=== PATIENT | male | born 1940 | race Caucasian/White ===

== ENCOUNTER → 2016-10-13 | Outpatient (CLI) | payer OTHER ==
[~2016-10-13] MED LIST: ACTOS 45 MG45 M1 PO; AMLODIPINE BESY10 MG PO; CHLORTHALIDONE25 MG PO; COLACE 100 MG100 MG PO; GLIPIZIDE ER5 MG PO; LANTUSSOLASTAR; LEVOXYL100 MCG PO; LIPITOR20 MG PO; LISINOPRIL40 MG PO; NORCO 5-325 TA1 EACH PO; PERCOCET 5-3251 EACH PO; SENNA PO; STARLIX PO; TOPROL XL50 MG PO
== END ==
LOC: RAD 14:33
DX: R05 Cough (principal)

== ENCOUNTER 2017-11-30 06:35 | Inpatient (IN) | payer OTHER ==
[~2017-11-30] VITALS: Ht 190.5 cm; Wt 110.2 kg
--- NOTE | ~2017-11-30 | EKG ---
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: Yesenia AZAR : 1940 Requested By: Rakesh Betts Order Number: [id number] MD: Nir Ascencio Measurements Intervals [place] Rate: 64 P: 10 WA: 176 QRS: 3 QRSD: 105 T: 25 QT: 391 QTc: 404 Interpretive Statements Sinus rhythm Abnrm T, probable ischemia, anterolateral lds Compared to ECG 12/01/2017 06:06:21 Atrial premature complex(es) no longer present Electronically Signed On 12-05-2017 13:19:02 CDT by Nir Ascencio [email or web address] <ELECTRONICALLY SIGNED> By: Nir Ascencio MD, FAC 12/05/17 1319 1002 1002 Nir Ascencio MD, [facility] /EPI
--- NOTE | ~2017-11-30 | CATHLAB ---
[facility] [address] [place] [address] INVASIVE PROCEDURE REPORT Name: BRETT RIVERA Room #: 215-[facility] ..#: [id number] Admission: 12/01/17 Attend Phys: Rakesh Betts, Discharge: 12/03/17 Date of : 42 Date of Service: 12/03/17 1718 Report #: [id number] THIS REPORT FOR: //name// APPROVED REPORT Study performed: 12/02/2017 07:12:41 Patient Details Patient Status: In-Patient Room #: The patient is a 77 year-old male Event Personnel Rakesh Betts Service Observer, Riki Wick RN, Gris Torres Sandifer, David Monitor Procedures Performed CHRISTIANNE Place w/wo Plasty Single LAD 337673 Indication Chest pain Procedure Narrative The Right Groin^ was infiltrated with 1% Lidocaine subcutaneous anesthesia. A PINNACLE 6FR Sheath #[id number] sheath was inserted into the RFA^. Coronary angiography was performed using coronary diagnostic catheters. Closure device was deployed with a 6 Fr MYNXGRIP 6/7F #[id number]. The patient tolerated the procedure well and there were no complications associated with the procedure. Intraoperative Conscious Sedation Sedation start time: 7.55 Case end Time: 8.12 Fentanyl 25 mcg Versed 1.5 mg Fluoro Time: 5.41 minutes Dose: 607 mGy Contrast Type and Amount: Visipaque 25 ml Hemodynamics The aortic pressure is 156/68 mmHg with a mean of 109 mmHg. PCI Technique Lesion Percutaneous coronary intervention was performed on the mid left anterior descending artery segment. A LAUNCHER 6FR EBU 4 #[id number] Guide Catheter was used to engage the ostium. A [facility] Interventional [facility] [address] [place] [address] INVASIVE PROCEDURE REPORT Name: BRETT RIVERA Room #: 215-[facility] .R.#: [id number] Admission: 12/01/17 Attend Phys: Rakesh Betts, Discharge: 12/03/17 Date of : 42 Date of Service: 12/03/17 1718 Report #: [id number] Guidewire was used to cross the lesion. BALLOON DILATION A Balloon catheter Sprinter OTW 2.5 x 12 #[id number] was inserted and inflated up to 8.00atm for 10seconds. Additional Inflation: 8.00atm for 15seconds. Additional Inflation: 10.00atm for 16seconds. STENT DEPLOYMENT A drug-eluting stent RESOLUTE OTW 3.0 X 12 #[id number] was inserted and inflated up to 14.00atm for 34seconds. Additional Inflation: 14.00atm for 26seconds. Conclusion #1 successful PTCA stent of the proximal LAD lesion of 90% to 0% with a 30 by 12 resolute drug-eluting stent postdilated 3.3 mm 0% residual and LISA grade 3 flow #2 diagonal branch was jailed but remains widely patent has a right ankle take off. Recommendations and plan limited contrast utilized less than 25 mL. Minx closure device was utilized without complication. Transfer to CCU stable condition. Dual antiplatelet therapy to continue 6-12 months. <ELECTRONICALLY SIGNED> By: Rakesh Betts MD, [facility] 12/03/171717 17 17 Rakesh Betts MD, FAC /INF
--- NOTE | ~2017-11-30 | EKG ---
[address] [place] [address] ELECTROCARDIOGRAM REPORT Name: BRETT RIVERA Room #: 215-[facility] IN M.R.#: [id number] Admission: 12/01/17 Attend Phys: Rakesh Betts MD, Discharge: 12/03/17 Date of : 42 Report #: [id number] THIS REPORT FOR: //name// [facility] Test Date: 2017-12-03 Test Time: 06:09:26 Pat Name: BRETT RIVERA Department: Room: 215 Gender: M Meal Room Hand: : 1940 Requested By: Rakesh Betts Order Number: [id number] MD: Nir Ascencio Measurements Intervals [place] Rate: 59 P: -1 VT: 167 QRS: 17 QRSD: 112 T: -47 QT: 467 QTc: 463 Interpretive Statements Sinus rhythm Abnormal T, consider ischemia, anterior leads Baseline wander in lead(s) V1 Compared to ECG 12/01/2017 06:06:21 No significant change was found Electronically Signed On 12-05-2017 13:33:17 CDT by Nir Ascencio [email or web address] <ELECTRONICALLY SIGNED> By: Nir Ascencio MD, [facility] 12/05/17 1333 0609 0609 Nir Ascencio MD, [facility] /EPI
--- NOTE | ~2017-11-30 | H ---
[facility] [place] [address] HISTORY AND PHYSICAL Name: BRETT RIVERA Room #: 215-P [facility] M.R.#: [id number] Admission: 11/30/17 Attend Phys: Rakesh Betts MD, Discharge: Date of : 42 Report #: [id number] THIS REPORT FOR: //name// CC: DR MAEVE Arnold DATE OF SERVICE: 11/30/2017 HISTORY OF PRESENT ILLNESS: The patient is a 77-year-old male who I was attempting to place an LAD stent this morning. The patient was admitted for this. He has a history of chronic kidney disease, and the diagnostic procedure had been done back in September of this year. 80-90% proximal LAD and diagonal takeoff, with stable anginal symptoms. Subsequently, on her stat labs this morning, despite holding lisinopril, his laboratory work had a creatinine of 2.7, potassium of 6.7. His baseline creatinine is in the low 3s. We had held the ZIA inhibitors. His H and H were 11.8 and 35. In any event, with the hyperkalemia and the creatinine up, certainly need to hold off on any intervention or contrast utilization at this time. He is stable and pain free. I have asked Nephrology to see him. We have treated the hyperkalemia with D50 insulin and high dose albuterol. CURRENT MEDICATIONS: Have been atorvastatin 20, amlodipine 10. We have held lisinopril for 3 days, insulin, glipizide, metoprolol 25, Livalo 4 mg and Demadex 20, which had also been held. PAST MEDICAL HISTORY: Positive for coronary artery disease as described above, diabetes, hypertension, hypercholesterolemia, hypothyroidism, chronic kidney disease, history of renal cell cancer with a single kidney. Left elbow surgery and cholecystectomy. SOCIAL HISTORY: He is . He is not a smoker. No alcohol use. He is retired. He lives independently. 2 Diet Cokes a day. No regular exercise. ALLERGIES: IODINE ALLERGY GIVES HIM HIVES. REVIEW OF SYSTEMS: Essentially negative except for some hesitancy and frequency, nocturia. As stated above. PHYSICAL EXAMINATION: GENERAL: He is pleasant, alert. VITAL SIGNS: Blood pressure 144/84, pulse 70s. HEENT: Eyes reveal xanthelasmas. Pharynx is clear. NECK: Shows preserved upstrokes without JVD or bruits. [facility] [address] [place] [address] HISTORY AND PHYSICAL Name: BRETT RIVERA Room #: [address] [place] [address]#: [id number] Admission: 11/30/17 Attend Phys: Rakesh Betts MD, Discharge: Date of : 42 Report #: [id number] LUNGS: Slight prolonged phase, but clear. HEART: Regular rate and rhythm, S1, S2. ABDOMEN: Soft. No HSM or abdominal bruit. EXTREMITIES: Reveal trace of nonpitting edema. NEUROLOGIC: Nonfocal. SKIN: Warm and dry without xanthoma or ulcer. MUSCULOSKELETAL: No gross joint deformity. ASSESSMENT: 1. Hyperkalemia. Potassium 6.7. 2. Acute on chronic kidney insufficiency. 3. Coronary artery disease with high grade proximal mid LAD lesion. Scheduled for LAD stent. 4. Hypertension. 5. Hypercholesterolemia. 6. Degenerative joint disease. 7. Diabetes. RECOMMENDATIONS AND PLAN: I have treated this hyperkalemia. Nephrology has weighed in and will follow. We will repeat labs in the morning. We will admit to the CCU, monitor rhythm. Repeat potassium and will attempt an LAD stent at a later date, I suspect 24-48 hours once creatinine and potassium have improved, and Nephrology is also okay in this. I have discussed this whole issue here with the patient and his , and they are in agreement with the plan. He will be admitted to CCU and monitored. <ELECTRONICALLY SIGNED> By: Rakesh Betts MD, FACC 11/30/17 1231 0936 1031 Rakesh Betts MD, FACC /nt
--- NOTE | ~2017-11-30 | HC ---
[facility] [place] [place] [address] CONSULTATION Name: BRETT RIVERA Room #: 215-P [facility] IN M.R.#: [id number] Admission: 12/01/17 Attend Phys: Rakesh Betts MD, Discharge: 12/03/17 Date of : 42 Report #: [id number] THIS REPORT FOR: //name// CC: Rakesh Nelson REASON FOR CONSULTATION: Chronic kidney disease. REASON FOR PRESENTATION: Coronary artery disease for catheterization and LAD stent. HISTORY OF PRESENT ILLNESS: A 77-year-old with past medical history of chronic kidney disease, who sees Dr. Nelson in my clinic. He recently had a cardiac catheterization that revealed an LAD lesion and was brought for further intervention. He was found to have an elevated potassium and the procedure was canceled. I am being asked to manage his chronic kidney disease and hyperkalemia. The patient tells me that he had renal cell carcinoma status post nephrectomy about 11 years ago. He recently saw Dr. Nelson in the clinic. He does tend to run a creatinine of around 2.1. He also is known to have issues with hyperkalemia and there was a discussion of discontinuation of the angiotensin-converting enzyme inhibitors down the road. On presentation yesterday, his creatinine and potassium were elevated above baseline and I am asked, as I stated, to manage accordingly. PAST MEDICAL HISTORY: 1. Coronary artery disease. 2. Hypertension. 3. Hyperlipidemia. 4. Hypothyroidism. 5. Chronic kidney disease. 6. Status post nephrectomy. 7. Left elbow surgery. 8. Cholecystectomy. ALLERGIES: IODINE. SOCIAL HISTORY: , not a smoker. Lives with his . No drug or alcohol abuse. OUTPATIENT MEDICATIONS: Reviewed. 1. Metoprolol. 2. Amlodipine. 3. Lisinopril. 4. Torsemide. 5. Glipizide. 6. Levothyroxine. [facility] [address] [place] [address] CONSULTATION Name: BRETT RIVERA Room #: 215[facility] [id number] Admission: 12/01/17 Attend Phys: Rakesh Betts MD, Discharge: 12/03/17 Date of : 42 Report #: [id number] 7. Livalo. REVIEW OF SYSTEMS: GENERAL: No fever. No chills. CARDIOVASCULAR: No chest pain, but occasional dyspnea on exertion. PULMONARY: No cough or hemoptysis. GASTROINTESTINAL: No nausea or vomiting. GENITOURINARY: No frequency, no urgency. PHYSICAL EXAMINATION: VITAL SIGNS: Blood pressure 145/84. Temperature 36.7, pulse rate 63. HEAD AND NECK: No jugular venous distention, no bruit, no thyromegaly. CHEST: Clear to auscultation bilaterally. CARDIOVASCULAR: Regular with no rub detected. ABDOMEN: Soft, nontender with no hepatosplenomegaly. LOWER EXTREMITIES: No edema with intact peripheral pulses. LABORATORY DATA: Laboratory values reviewed. Potassium is down to 4.7, 6.5 yesterday. BUN is 58, creatinine is 2.6. ASSESSMENT, IMPRESSION AND PLAN: 1. Acute kidney injury. 2. Chronic kidney disease. 3. Status post nephrectomy. 4. Hyperkalemia. 5. Coronary artery disease. 6. Hypertension. 7. As for now, his hyperkalemia has corrected. Lisinopril has been held. He received a dose of Kayexalate and this has rectified his potassium issues. Blood pressure seems to be acceptable. I would continue to hold his diuretics for now. Discussed with Dr. Betts regarding the future plans for his heart catheterization. We will continue to follow along. <ELECTRONICALLY SIGNED> By: Zain Pineda MD 12/04/1723 0831 09 Zain Pineda MD /nt
--- NOTE | ~2017-11-30 | EKG ---
[address] [address] ELECTROCARDIOGRAM REPORT Name: BRETT RIVERA Room #: 215-P [facility] M.R.#: [id number] Admission: 11/30/17 Attend Phys: Rakesh Betts MD, Discharge: Date of : 42 Report #: [id number] THIS REPORT FOR: //name// [facility] Test Date: 2017-11-30 Test Time: 06:58:06 Pat Name: BRETT RIVERA Department: Room: 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: Yesenia AZAR : 1940 Requested By: Rakesh Betts Order Number: [id number] MD: Nir Ascencio Measurements Intervals [place] Rate: 75 P: CT: QRS: 1 QRSD: 98 T: 54 QT: 397 QTc: 444 Interpretive Statements Sinus rhythm Abnrm T, probable ischemia, anterolateral lds Compared to ECG 10/21/2010 16:51:[address] and T wave abnormality is now present Electronically Signed On 11-30-2017 16:58:13 CDT by Nir Ascencio [email or web address] <ELECTRONICALLY SIGNED> By: Nir Ascencio MD, FACC 11/30/17 1658 0658 0658 Nir Ascencio MD, [facility] /EPI
--- NOTE | ~2017-11-30 | EKG ---
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: : 1940 Requested By: Zita Richmond Order Number: [id number] MD: Nir Ascencio Measurements Intervals [place] Rate: 66 P: -10 VT: 171 QRS: 19 QRSD: 112 T: -46 QT: 440 QTc: 461 Interpretive Statements Sinus rhythm Atrial premature complex Abnormal T, consider ischemia, anterior leads Compared to ECG 11/30/2017 06:58:06 Atrial premature complex(es) now present Electronically Signed On 12-01-2017 8:14:51 CDT by Nir Ascencio [email or web address] <ELECTRONICALLY SIGNED> By: Nir Ascencio MD, [facility] 12/01/17 0814 0606 0606 Nir Ascencio MD, [facility] /EPI
[2017-11-30] MEDS ORDERED: CHILDREN'S ASPI81 M1 PO (06:56)
[2017-11-30] MEDS ORDERED: CHLORDIAZEPOXID25 M1 PO (06:59)
[2017-11-30] MEDS ORDERED: LIVALO4 MG PO (06:59)
[2017-11-30] MEDS ORDERED: TOUJEO SOL300 UNIT/1 SUBQ (07:02)
[2017-11-30] MEDS ORDERED: DEMADEX20 MG PO (07:05)
[2017-11-30 07:09] VITALS: BP 149/84
[2017-11-30 07:22] LABS: HEMOGLOBIN 11.8 gm/dL (14.0-18.0)
[2017-11-30 07:23] LABS: MCH 29.7 pg (26.0-34.0); MCHC 33.6 g/dL (28.0-37.0); MCV 88.2 fL (80.0-100.0); RBC 3.97 mil/uL (4.50-6.00); WBC 6.2 thou/uL (4.0-11.0)
[2017-11-30 07:30] LABS: CALCIUM 8.8 mg/dL (8.5-10.1); CREATININE 2.7 mg/dL (0.7-1.3)
[2017-11-30 07:33] LABS: POTASSIUM 6.7 mmol/L (3.5-5.1)
[2017-11-30] MEDS ORDERED: NORVASC10 MG PO (10:36)
[2017-11-30 16:29] VITALS: BP 153/77
[2017-11-30 19:30] VITALS: BP 146/79
[2017-11-30 23:19] VITALS: BP 146/78
[2017-12-01 03:47] VITALS: BP 135/85
[2017-12-01 04:16] LABS: ALBUMIN 3.1 g/dL (3.4-5.0); CALCIUM 8.6 mg/dL (8.5-10.1); CREATININE 2.6 mg/dL (0.7-1.3); PHOSPHORUS 3.7 mg/dL (2.5-4.9)
[2017-12-01 04:17] LABS: POTASSIUM 4.7 mmol/L (3.5-5.1)
[2017-12-01 07:19] VITALS: BP 145/84
[2017-12-01 11:09] VITALS: BP 143/78
[2017-12-01 19:55] VITALS: BP 140/77
[2017-12-02] VITALS (17 sets, daily range): BP systolic 125–161; BP diastolic 68–85
[2017-12-02 04:04] LABS: ALBUMIN 3.2 g/dL (3.4-5.0); CALCIUM 8.3 mg/dL (8.5-10.1); CREATININE 2.4 mg/dL (0.7-1.3); PHOSPHORUS 2.7 mg/dL (2.5-4.9); POTASSIUM 5.7 mmol/L (3.5-5.1)
[2017-12-03 04:26] LABS: CALCIUM 8.3 mg/dL (8.5-10.1); CREATININE 2.5 mg/dL (0.7-1.3); PHOSPHORUS 3.2 mg/dL (2.5-4.9); POTASSIUM 4.5 mmol/L (3.5-5.1)
[2017-12-03 05:16] VITALS: BP 151/84
[2017-12-03 05:25] LABS: HEMATOCRIT 32.3 % (42.0-52.0); HEMOGLOBIN 10.9 gm/dL (14.0-18.0); MCH 29.9 pg (26.0-34.0); MCHC 33.9 g/dL (28.0-37.0); MCV 88.1 fL (80.0-100.0); RBC 3.66 mil/uL (4.50-6.00); RDW 13.7 % (10.5-14.5); WBC 14.8 thou/uL (4.0-11.0)
[2017-12-03 07:40] VITALS: BP 145/86
[2017-12-03] MEDS ORDERED: ASPIRIN325 PO (09:10)
[2017-12-03] MEDS ORDERED: SODIUM BICARBO650 M3 PO (09:11)
[2017-12-03] MEDS ORDERED: PLAVIX 75 MG TA75 M1 PO (09:13)
[2017-12-03 09:22] VITALS: BP 145/86
== END 2017-12-03 10:15 | disposition home or self-care (01) | DRG 246 ==
LOC: CATH 06:35 → 2N 06:49 → CATH 11:10 → 2N 12-01 11:56 → ENTRNSPT 12-03 09:50 → EDTRNSPTSTS 12-03 09:54 → 2N 12-03 10:15
PROVIDERS: Hospitalist; Internal Medicine Cardiovascular Disease
PROC: B211YZZ Fluoroscopy of Multiple Coronary Arteries using Other Contrast (ICD-10-PCS; principal; 2017-12-03)
PROC: 027034Z Dilation of Coronary Artery, One Artery with Drug-eluting Intraluminal Device, Percutaneous Approach (ICD-10-PCS; principal; 2017-12-03)
DX: I25.10 Atherosclerotic heart disease of native coronary artery without angina pectoris (principal); N17.0 Acute kidney failure with tubular necrosis; E87.5 Hyperkalemia; E78.00 Pure hypercholesterolemia, unspecified; M19.90 Unspecified osteoarthritis, unspecified site; E11.22 Type 2 diabetes mellitus with diabetic chronic kidney disease; G47.33 Obstructive sleep apnea (adult) (pediatric); N18.9 Chronic kidney disease, unspecified; E78.5 Hyperlipidemia, unspecified; I12.9 Hypertensive chronic kidney disease with stage 1 through stage 4 chronic kidney disease, or unspecified chronic kidney disease; E03.9 Hypothyroidism, unspecified; Z90.5 Acquired absence of kidney; Z90.49 Acquired absence of other specified parts of digestive tract; Z91.041 Radiographic dye allergy status; Z85.528 Personal history of other malignant neoplasm of kidney; Z79.899 Other long term (current) drug therapy
CPT/HCPCS: 10081

== ENCOUNTER → 2020-03-28 | Outpatient (CLI) | payer OTHER ==
[~2020-03-28] MED LIST changes: +ASPIRIN325 PO; +CHILDREN'S ASPI81 M1 PO; +CHLORDIAZEPOXID25 M1 PO; +DEMADEX20 MG PO; +LIVALO4 MG PO; +NORVASC10 MG PO; +PLAVIX 75 MG TA75 M1 PO; +SODIUM BICARBO650 M3 PO; +TOUJEO SOL300 UNIT/1 SUBQ
== END ==
LOC: SJCVC 15:17
PROVIDERS: ATTEND Internal Medicine Cardiovascular Disease
DX: I48.91 Unspecified atrial fibrillation (principal); R94.31 Abnormal electrocardiogram [ECG] [EKG]; I25.10 Atherosclerotic heart disease of native coronary artery without angina pectoris; E78.00 Pure hypercholesterolemia, unspecified; C85.90 Non-Hodgkin lymphoma, unspecified, unspecified site; D64.9 Anemia, unspecified; I12.9 Hypertensive chronic kidney disease with stage 1 through stage 4 chronic kidney disease, or unspecified chronic kidney disease; E11.22 Type 2 diabetes mellitus with diabetic chronic kidney disease; N18.4 Chronic kidney disease, stage 4 (severe); G54.1 Lumbosacral plexus disorders; E03.9 Hypothyroidism, unspecified; Z79.4 Long term (current) use of insulin; Z82.49 Family history of ischemic heart disease and other diseases of the circulatory system; Z79.82 Long term (current) use of aspirin; Z79.899 Other long term (current) drug therapy

== ENCOUNTER → 2020-07-04 | Outpatient (CLI) | payer OTHER | LOC: SJCVCIMAG 08:46 | PROVIDERS: ATTEND Internal Medicine Cardiovascular Disease | DX: I08.3 Combined rheumatic disorders of mitral, aortic and tricuspid valves (principal); R94.31 Abnormal electrocardiogram [ECG] [EKG]; I44.7 Left bundle-branch block, unspecified; I44.0 Atrioventricular block, first degree; I48.0 Paroxysmal atrial fibrillation; E11.22 Type 2 diabetes mellitus with diabetic chronic kidney disease; I13.10 Hypertensive heart and chronic kidney disease without heart failure, with stage 1 through stage 4 chronic kidney disease, or unspecified chronic kidney disease; N18.30 Chronic kidney disease, stage 3 unspecified; I25.10 Atherosclerotic heart disease of native coronary artery without angina pectoris; E78.00 Pure hypercholesterolemia, unspecified; D64.9 Anemia, unspecified; C85.90 Non-Hodgkin lymphoma, unspecified, unspecified site; Z79.899 Other long term (current) drug therapy ==

== ENCOUNTER → 2021-01-16 | Outpatient (CLI) | payer OTHER | LOC: SJCVC 13:33 → SJCVCIMAG 13:33 | PROVIDERS: ATTEND Internal Medicine Cardiovascular Disease | DX: R94.31 Abnormal electrocardiogram [ECG] [EKG] (principal); N28.89 Other specified disorders of kidney and ureter; I25.10 Atherosclerotic heart disease of native coronary artery without angina pectoris; E78.00 Pure hypercholesterolemia, unspecified; E11.22 Type 2 diabetes mellitus with diabetic chronic kidney disease; I12.9 Hypertensive chronic kidney disease with stage 1 through stage 4 chronic kidney disease, or unspecified chronic kidney disease; N18.30 Chronic kidney disease, stage 3 unspecified; R60.9 Edema, unspecified; K85.30 Drug induced acute pancreatitis without necrosis or infection; D64.9 Anemia, unspecified; R19.5 Other fecal abnormalities; E03.9 Hypothyroidism, unspecified; Z90.5 Acquired absence of kidney; Z90.49 Acquired absence of other specified parts of digestive tract; Z98.890 Other specified postprocedural states; Z88.8 Allergy status to other drugs, medicaments and biological substances; Z79.82 Long term (current) use of aspirin; Z79.4 Long term (current) use of insulin; Z79.899 Other long term (current) drug therapy; Z82.49 Family history of ischemic heart disease and other diseases of the circulatory system ==

== ENCOUNTER → 2021-07-11 | Outpatient (CLI) | payer OTHER | LOC: SJCVCIMAG 08:08 | PROVIDERS: ATTEND Internal Medicine Cardiovascular Disease | DX: N28.1 Cyst of kidney, acquired (principal); N28.9 Disorder of kidney and ureter, unspecified ==

== ENCOUNTER → 2021-07-24 | Outpatient (CLI) | payer OTHER | LOC: SJCVC 13:38 | PROVIDERS: ATTEND Internal Medicine Cardiovascular Disease | DX: I48.91 Unspecified atrial fibrillation (principal); I25.10 Atherosclerotic heart disease of native coronary artery without angina pectoris; E11.22 Type 2 diabetes mellitus with diabetic chronic kidney disease; I12.9 Hypertensive chronic kidney disease with stage 1 through stage 4 chronic kidney disease, or unspecified chronic kidney disease; N18.30 Chronic kidney disease, stage 3 unspecified; D64.9 Anemia, unspecified; E78.00 Pure hypercholesterolemia, unspecified; C85.90 Non-Hodgkin lymphoma, unspecified, unspecified site; N28.89 Other specified disorders of kidney and ureter; Z79.4 Long term (current) use of insulin; Z90.49 Acquired absence of other specified parts of digestive tract; Z95.2 Presence of prosthetic heart valve; Z98.890 Other specified postprocedural states; Z79.82 Long term (current) use of aspirin; Z79.899 Other long term (current) drug therapy; Z88.8 Allergy status to other drugs, medicaments and biological substances ==